=== PATIENT | female | born 1995 | race African-American/Black ===

== ENCOUNTER 2019-08-30 13:10 | Emergency (ER) | payer MEDICAID ==
[2019-08-30] MEDS ORDERED: Cyclobenzaprine 10 MG TAB ONE ×2 (13:40→13:44)
[2019-08-30] MEDS ORDERED: Ketorolac Tromethamine 60 MG/2 ML VIAL ONE (13:40)
== END 2019-08-30 13:58 | disposition home or self-care (01) ==
LOC: BURERS 13:10
DX: S46.912A Strain of unspecified muscle, fascia and tendon at shoulder and upper arm level, left arm, initial encounter (principal); S16.1XXA Strain of muscle, fascia and tendon at neck level, initial encounter; F41.9 Anxiety disorder, unspecified; F32.9 Major depressive disorder, single episode, unspecified; X58.XXXA Exposure to other specified factors, initial encounter
CPT/HCPCS: 96372; 99283; J1885

== ENCOUNTER 2021-01-12 14:52 | Emergency (ER) | payer MEDICAID, OTHER ==
[2021-01-12] MEDS ORDERED: Albuterol Sulfate 2.5 mg/0.5 ml Neb ONE (15:32)
[2021-01-12] MEDS ORDERED: predniSONE 20 MG TAB ONE (15:32)
[2021-01-12] MEDS ORDERED: Albuterol Sulfate 1.25 MG/3 ML NEB ONE (15:36)
== END 2021-01-12 16:49 | disposition home or self-care (01) ==
LOC: BURERS 14:52
DX: T52.8X1A Toxic effect of other organic solvents, accidental (unintentional), initial encounter (principal); J68.0 Bronchitis and pneumonitis due to chemicals, gases, fumes and vapors; J04.0 Acute laryngitis; J68.3 Other acute and subacute respiratory conditions due to chemicals, gases, fumes and vapors
CPT/HCPCS: 71045; 94640; J7512; J7611

== ENCOUNTER 2021-02-04 12:08 | Emergency (ER) | payer OTHER | END 2021-02-04 14:05 | disposition home or self-care (01) | LOC: BURERS 12:08 | DX: S60.021A Contusion of right index finger without damage to nail, initial encounter (principal); W23.0XXA Caught, crushed, jammed, or pinched between moving objects, initial encounter ==